=== PATIENT | male | born 1940 | race Two or more races ===

== ENCOUNTER 2023-08-01 11:52 | Emergency (ER) | payer MEDICARE, OTHER ==
[~2023-08-01] VITALS: Ht 149.9 cm; Wt 59.1 kg
[2023-08-01] MEDS ORDERED: ALBUTEROL SULF 2.5 MG/0.5ML(0.5%) NEB SOLN NEB ONE (13:00)
[2023-08-01] MEDS ORDERED: IPRATROPIUM BROM 0.5 MG/2.5ML INH SOL NEB ONE (13:00)
[2023-08-01 13:31] LABS: Basophils # (auto) 0.1 10 ^3/uL (0-0.2); Basophils % (auto) 1.3 % (0.0-2.0); Eosinophils # (auto) 0 10 ^3/uL (0-0.8); Hematocrit 19.2 % (41.0-53.0); Lymphocytes # (auto) 1.1 10 ^3/uL (0.4-5.4); Mean Corpuscular Volume 102.2 fL (80.0-100.0); Monocytes # (auto) 0.6 10 ^3/uL (0-1.3); Neutrophils # (auto) 2.2 10 ^3/uL (1.6-8.6); Red Blood Cells 1.88 10^6/uL (4.5-5.90)
[2023-08-01 13:34] LABS: Eosinophils % (auto) 0.9 % (0.0-7.0); Lymphocytes % (auto) 27.8 % (10.0-50.0); Mean Corpuscular Hemoglobin 34.8 pg (28.0-32.0); Monocytes % (auto) 14.5 % (0.0-12.0); Neutrophils % (auto) 55.5 % (37.0-80.0)
[2023-08-01 13:43] LABS: Hemoglobin 6.5 g/dL (13.5-17.5)
[2023-08-01 15:46] LABS: Alanine Aminotransferase 26 U/L (7-40); Albumin 2.6 g/dL (3.2-4.8); Alkaline Phosphatase 91 U/L (46-116); Anion Gap 4 (5-15); Aspartate Aminotransferase 36 U/L (13-40); BUN/Creatinine Ratio 17.5 (10.0-20.0); Bilirubin, Total 0.2 mg/dL (0.2-1.0); Blood Urea Nitrogen 24 mg/dL (9-23); Calcium 8.3 mg/dL (8.5-10.1); Carbon Dioxide 22 mmol/L (20-30); Chloride 106 mmol/L (98-107); Glucose 80 mg/dL (74-106); Potassium 3.7 mmol/L (3.5-5.1); Sodium 132 mmol/L (136-145)
[2023-08-01] MEDS: FUROSEMIDE 20 MG/2 ML VIAL IV ONE (17:01)
[2023-08-01] MEDS: methylPREDNISolone SOD SUCC 125 MG/2 ML VL IV ONE (17:01)
[2023-08-01] MEDS: FUROSEMIDE 40 MG/4 ML VIAL IV ONE (18:30)
[2023-08-01 20:34] VITALS: PULSE 96; RESP 16; O2SAT 97
[2023-08-01 22:12] VITALS: BP 133/65; PULSE 85; RESP 22; TEMP 98.1
[2023-08-01 22:27] VITALS: BP 128/66; PULSE 81; RESP 19; TEMP 98.6
[2023-08-02 00:23] VITALS: BP 131/65; PULSE 79; RESP 18; TEMP 98.4; O2SAT 94
[2023-08-02 00:25] VITALS: BP 131/68; PULSE 79; RESP 16; TEMP 98.4
== END 2023-08-02 00:46 | disposition home or self-care (01) ==
LOC: EDBD 11:52 → ER 11:52
DX: D64.9 Anemia, unspecified (principal); J44.1 Chronic obstructive pulmonary disease with (acute) exacerbation; I70.0 Atherosclerosis of aorta
CPT/HCPCS: 36415; 71045; 80053; 83880; 84484; 85025; 86850; 86900; 86901; 86920; 96374; 96375; 99285; J1940; J2930; P9016

== ENCOUNTER 2023-08-04 06:22 | Inpatient (IN) | payer OTHER ==
[~2023-08-04] VITALS: Ht 152.4 cm; Wt 50.1 kg
[2023-08-04 07:17] LABS: Basophils # (auto) 0 10 ^3/uL (0-0.2); Eosinophils # (auto) 0.1 10 ^3/uL (0-0.8); Hematocrit 23.3 % (41.0-53.0); Hemoglobin 7.7 g/dL (13.5-17.5); Neutrophils # (auto) 3.1 10 ^3/uL (1.6-8.6); Red Blood Cells 2.34 10^6/uL (4.5-5.90)
[2023-08-04 07:20] LABS: Basophils % (auto) 0.5 % (0.0-2.0); Eosinophils % (auto) 1.9 % (0.0-7.0); Lymphocytes # (auto) 2.2 10 ^3/uL (0.4-5.4); Lymphocytes % (auto) 35.3 % (10.0-50.0); Mean Corpuscular Hemoglobin 32.8 pg (28.0-32.0); Mean Corpuscular Volume 99.4 fL (80.0-100.0); Monocytes # (auto) 0.8 10 ^3/uL (0-1.3); Monocytes % (auto) 13.3 % (0.0-12.0); Red Cell Distribution Width 17.2 % (11.8-14.3); White Blood Cell 6.3 10^3/uL (4.4-10.8)
[2023-08-04 07:23] LABS: Chloride 102 mmol/L (98-107); Potassium 3.5 mmol/L (3.5-5.1); Sodium 130 mmol/L (136-145)
[2023-08-04 07:24] LABS: Anion Gap 5 (5-15); Carbon Dioxide 23 mmol/L (20-30)
[2023-08-04 07:25] LABS: Calcium 8.3 mg/dL (8.5-10.1)
[2023-08-04 07:30] LABS: BUN/Creatinine Ratio 22.1 (10.0-20.0); Blood Urea Nitrogen 34 mg/dL (9-23); Glucose 80 mg/dL (74-106)
[2023-08-04 07:30] LABS: INR 1.16 (0.9-1.15); Prothrombin Time 12.1 sec (9.3-11.8)
[2023-08-04] MEDS ORDERED: MORPHINE SULFATE INJ 2 MG/ml SYRG IV PRN (09:15)
[2023-08-04] MEDS ORDERED: hydrALAZINE HCL 20 MG/ML VL IV PRN (09:15)
[2023-08-04] MEDS ORDERED: NITROGLYCERIN 0.4 MG SL TAB SL PRN (09:15)
[2023-08-04] MEDS: SODIUM CHLORIDE 0.9% 1,000 ML IV ONE (09:54)
[2023-08-04] MEDS ORDERED: HYDROcodone-ACET 10/325MG TAB PO SCH (10:00)
[2023-08-04] MEDS: PIPERACILLIN-TAZOB 3.375GM 100 ML IV SCH (10:13)
[2023-08-04] MEDS ORDERED: HYDROcodone-ACET 10/325MG TAB PO PRN (11:30)
[2023-08-05] VITALS (8 sets, daily range): BP systolic 111–144; BP diastolic 56–74; PULSE 78–84; RESP 12–20; TEMP 98–100.4; O2SAT 96–99
[2023-08-05 01:59] LABS: Hematocrit 24.2 % (41.0-53.0); Hemoglobin 8.2 g/dL (13.5-17.5)
[2023-08-05 05:32] LABS: Basophils # (auto) 0 10 ^3/uL (0-0.2); Eosinophils # (auto) 0 10 ^3/uL (0-0.8); Eosinophils % (auto) 0.3 % (0.0-7.0); Hemoglobin 8.1 g/dL (13.5-17.5); Mean Corpuscular Hemoglobin 33.7 pg (28.0-32.0); Monocytes # (auto) 0.8 10 ^3/uL (0-1.3)
[2023-08-05 05:34] LABS: Basophils % (auto) 0.3 % (0.0-2.0); Hematocrit 23.9 % (41.0-53.0); Lymphocytes # (auto) 0.7 10 ^3/uL (0.4-5.4); Lymphocytes % (auto) 11.9 % (10.0-50.0); Mean Corpuscular Hgb Conc. 33.9 g/dL (32.0-36.0); Mean Corpuscular Volume 99.4 fL (80.0-100.0); Monocytes % (auto) 12.6 % (0.0-12.0); Neutrophils # (auto) 4.7 10 ^3/uL (1.6-8.6); Neutrophils % (auto) 74.9 % (37.0-80.0); Red Cell Distribution Width 16.6 % (11.8-14.3); White Blood Cell 6.3 10^3/uL (4.4-10.8)
[2023-08-05 05:44] LABS: Anion Gap 3 (5-15); Carbon Dioxide 23 mmol/L (20-30); Chloride 103 mmol/L (98-107); Potassium 3.9 mmol/L (3.5-5.1); Sodium 129 mmol/L (136-145)
[2023-08-05 05:45] LABS: Calcium 8.3 mg/dL (8.5-10.1)
[2023-08-05 05:50] LABS: BUN/Creatinine Ratio 15.7 (10.0-20.0); Blood Urea Nitrogen 20 mg/dL (9-23); Glucose 83 mg/dL (74-106)
[2023-08-05 08:06] LABS: PSA Free 0.54 ng/mL; Prostate Specific Antigen 1.8 ng/mL (0.0-4.0)
== END 2023-08-05 17:58 | disposition home or self-care (01) | DRG 726 ==
LOC: ER 06:22 → TELE 09:10 → TELE-WESTW 23:45
PROVIDERS: ADMIT Internal Medicine; ATTEND Internal Medicine
DX: N40.1 Benign prostatic hyperplasia with lower urinary tract symptoms (principal); N13.30 Unspecified hydronephrosis; N13.8 Other obstructive and reflux uropathy; R31.0 Gross hematuria; N32.0 Bladder-neck obstruction; I50.9 Heart failure, unspecified; I11.0 Hypertensive heart disease with heart failure; E78.5 Hyperlipidemia, unspecified; D64.9 Anemia, unspecified
CPT/HCPCS: 36415; 74176; 80048; 84154; 84484; 85014; 85018; 85025; 85610; 86850; 86900; 86901; 86920; G0378; J2543

== ENCOUNTER 2023-11-10 13:21 | Emergency (ER) | payer OTHER ==
[~2023-11-10] VITALS: Ht 152.4 cm; Wt 47.7 kg
[2023-11-10 13:58] VITALS: TEMP 97.3
[2023-11-10 13:59] LABS: Eosinophils # (auto) 0 10 ^3/uL (0-0.8); Hemoglobin 7.8 g/dL (13.5-17.5); Lymphocytes # (auto) 1.1 10 ^3/uL (0.4-5.4); Neutrophils # (auto) 3.2 10 ^3/uL (1.6-8.6); White Blood Cell 5.1 10^3/uL (4.4-10.8)
[2023-11-10 14:00] VITALS: PULSE 67; RESP 22; O2SAT 97
[2023-11-10 14:01] LABS: Basophils # (auto) 0 10 ^3/uL (0-0.2); Basophils % (auto) 0.9 % (0.0-2.0); Eosinophils % (auto) 0.7 % (0.0-7.0); Hematocrit 22.9 % (41.0-53.0); Lymphocytes % (auto) 21.2 % (10.0-50.0); Mean Corpuscular Hemoglobin 33.2 pg (28.0-32.0); Mean Corpuscular Volume 97.8 fL (80.0-100.0); Monocytes # (auto) 0.8 10 ^3/uL (0-1.3); Monocytes % (auto) 14.6 % (0.0-12.0); Neutrophils % (auto) 62.6 % (37.0-80.0); Nucleated Red Blood Cells % 0.3 %; Red Blood Cells 2.34 10^6/uL (4.5-5.90); Red Cell Distribution Width 15.3 % (11.8-14.3)
[2023-11-10] MEDS: SODIUM CHLORIDE 0.9% 1,000 ML IV ONE (14:06)
[2023-11-10] MEDS: methylPREDNISolone SOD SUCC 125 MG/2 ML VL IV ONE (14:12)
[2023-11-10] MEDS: FAMOTIDINE (10MG/ML) 2ML VL IV ONE (14:14)
[2023-11-10] MEDS: diphenhdrAMINE HCL 50 MG/1 ML VL IV ONE (14:14)
[2023-11-10 14:15] LABS: INR 1.16 (0.9-1.15); Partial Thromboplastin Time 36.3 SEC (24.5-34.5); Prothrombin Time 12.2 sec (9.3-11.8)
[2023-11-10 14:16] LABS: Alanine Aminotransferase 16 U/L (7-40); Albumin 2.4 g/dL (3.2-4.8); Alkaline Phosphatase 114 U/L (46-116); Anion Gap 2 (5-15); Aspartate Aminotransferase 20 U/L (13-40); BUN/Creatinine Ratio 17.2 (10.0-20.0); Bilirubin, Total 0.2 mg/dL (0.2-1.0); Blood Urea Nitrogen 22 mg/dL (9-23); Calcium 8.1 mg/dL (8.5-10.1); Carbon Dioxide 25 mmol/L (20-30); Chloride 104 mmol/L (98-107); Glucose 90 mg/dL (74-106); Magnesium 1.9 mg/dL (1.6-2.6); Potassium 4.3 mmol/L (3.5-5.1); Sodium 131 mmol/L (136-145); Total Protein > 12.0 g/dL (5.7-8.2)
[2023-11-10] MEDS: IOHEXOL 300 MG/ML 100ML BOTTLE IJ ONE (14:48)
[2023-11-10] MEDS: PIPERACILLIN-TAZOB 3.375GM 100 ML IV ONE (15:56)
[2023-11-10] MEDS: FUROSEMIDE 100 MG/10ML VIAL IV ONE (15:56)
[2023-11-10 17:33] VITALS: BP 161/80; PULSE 70; RESP 21; O2SAT 98
== END 2023-11-10 17:43 | disposition home or self-care (01) ==
LOC: ER 13:21 → EDBD 13:21 → ER 17:43
DX: D64.9 Anemia, unspecified (principal); K12.2 Cellulitis and abscess of mouth; K13.79 Other lesions of oral mucosa; E87.70 Fluid overload, unspecified; I11.0 Hypertensive heart disease with heart failure; I50.9 Heart failure, unspecified; E78.5 Hyperlipidemia, unspecified
CPT/HCPCS: 36415; 70491; 71045; 80053; 83605; 83735; 83880; 84484; 85025; 85610; 85730; 86850; 86900; 86901; 96361; 96365; 96375; 99291; J1200; J1940; J2543; J2919; J3490; J7030; Q9967